=== PATIENT | female | born 1930 | race Caucasian/White ===

== ENCOUNTER 2017-09-19 15:32 | Emergency (ER) | payer MEDICARE, OTHER ==
[~2017-09-19] VITALS: Ht 170.2 cm; Wt 68.0 kg
[~2017-09-19 15:32] MED LIST: ADULT TUSS100 MG/5 M PO; ASPIR 8181 MG PO; BIOFREEZE118 ML TOP; BISOPROLOL FUMAR5 MG PO; CLARITIN10 MG PO; ESTRADIOL 1 MG T1 M1 PO; FISH OIL 1,001000 M2 PO; HYDROXYZINE HCL25 M1 PO; IBUPROFEN 200200 M1 PO; IRON325 PO; LASIX 40 MG TAB40 M2 PO; LISINOPRIL10 MG PO; LOPERAMIDE 2 MG2 M1 PO; MECLIZINE HCL12.5 MG PO; MELATONIN5 M1 PO; MIRALAX17 GM PO; MOBIC15 MG PO; NIACIN500 MG PO; OMEPRAZOLE20 M2 PO; PAXIL10 MG PO; PERCOCET 7.5-31 EACH PO; SALINE NASAL SP30 ML INH; SIMVASTATIN40 MG PO; VITAMIN B-12500 MCG PO; VITAMIN D3400 UNIT PO
[2017-09-19] MEDS ORDERED: HYDROXYZINE HCL25 M1 PO (15:41)
[2017-09-19] MEDS ORDERED: VOLTAREN GEL 1100 G2 TOP (15:43)
[2017-09-19 17:00] VITALS: BP 155/60
== END 2017-09-19 17:00 | disposition home or self-care (01) ==
LOC: M.ERS 15:32
DX: S09.8XXA Other specified injuries of head, initial encounter (principal); I10 Essential (primary) hypertension; I25.10 Atherosclerotic heart disease of native coronary artery without angina pectoris; Z96.651 Presence of right artificial knee joint; Z88.8 Allergy status to other drugs, medicaments and biological substances; Z88.6 Allergy status to analgesic agent; W18.39XA Other fall on same level, initial encounter; Y93.89 Activity, other specified; Y92.89 Other specified places as the place of occurrence of the external cause; Y99.8 Other external cause status

== ENCOUNTER → 2018-06-07 | Outpatient (CLI) | payer MEDICARE, OTHER ==
[~2018-06-07] MED LIST changes: +VOLTAREN GEL 1100 G2 TOP
== END | disposition home or self-care (01) ==
LOC: M.RAD 13:00
DX: M25.552 Pain in left hip (principal); Z79.899 Other long term (current) drug therapy; Z95.5 Presence of coronary angioplasty implant and graft; I10 Essential (primary) hypertension; K21.9 Gastro-esophageal reflux disease without esophagitis; G89.29 Other chronic pain